=== PATIENT | female | born 1985 | race Two or more races ===

== ENCOUNTER 2017-04-29 08:43 | Outpatient (CLI) | payer OTHER | END 2017-04-29 08:55 | disposition home or self-care (01) | LOC: RX STUDY 08:43 | DX: N91.2 Amenorrhea, unspecified (principal); N93.9 Abnormal uterine and vaginal bleeding, unspecified; Q50.6 Other congenital malformations of fallopian tube and broad ligament ==

== ENCOUNTER → 2017-06-17 | Outpatient (CLI) | payer OTHER | END | disposition home or self-care (01) | LOC: SONOGRAMA 08:42 → MAMO-SONO 09:15 | DX: D25.0 Submucous leiomyoma of uterus (principal) ==

== ENCOUNTER 2019-01-14 11:04 | Outpatient (CLI) | payer OTHER | END 2019-01-14 11:10 | disposition home or self-care (01) | LOC: SONOGRAMA 11:04 → MAMO-SONO 11:15 | DX: N93.8 Other specified abnormal uterine and vaginal bleeding (principal) ==

== ENCOUNTER → 2020-07-25 | Outpatient (CLI) | payer OTHER | END | disposition home or self-care (01) | LOC: PRENATAL 14:00 | PROVIDERS: ATTEND Obstetrics & Gynecology Maternal & Fetal Medicine | DX: O30.91 Multiple gestation, unspecified, first trimester (principal); O36.80X2 Pregnancy with inconclusive fetal viability, fetus 2; O09.811 Supervision of pregnancy resulting from assisted reproductive technology, first trimester; Z36.89 Encounter for other specified antenatal screening; Z3A.14 14 weeks gestation of pregnancy ==

== ENCOUNTER → 2020-09-05 | Outpatient (CLI) | payer OTHER | END | disposition home or self-care (01) | LOC: PRENATAL 14:00 | PROVIDERS: ATTEND Obstetrics & Gynecology Maternal & Fetal Medicine | DX: O35.0XX2 Maternal care for (suspected) central nervous system malformation in fetus, fetus 2 (principal); O35.3XX2 Maternal care for (suspected) damage to fetus from viral disease in mother, fetus 2; O98.512 Other viral diseases complicating pregnancy, second trimester; O09.812 Supervision of pregnancy resulting from assisted reproductive technology, second trimester; O30.92 Multiple gestation, unspecified, second trimester; Z36.89 Encounter for other specified antenatal screening; Z3A.19 19 weeks gestation of pregnancy ==